=== PATIENT | male | born 1970 | race Caucasian/White ===

== ENCOUNTER 2021-05-27 05:40 | Outpatient (CLI) | payer OTHER ==
[~2021-05-27] VITALS: Ht 182.9 cm; Wt 133.6 kg
[2021-06-17] MEDS ORDERED: LOSA100T57 PO (11:26)
[2021-06-17] MEDS ORDERED: TRAM50TA3 PO (11:26)
[2021-06-17] MEDS ORDERED: AMLO-251 PO (11:26)
== END 2021-06-17 11:29 ==
LOC: PREOP 05:40
PROVIDERS: ATTEND Internal Medicine
DX: Z01.818 Encounter for other preprocedural examination (principal)

== ENCOUNTER 2021-06-25 07:16 | Day surgery (SDC) | payer OTHER ==
--- NOTE | 2021-05-26 14:30 | HISTORY AND PHYSICAL ---
DATE OF SERVICE: COLONOSCOPY HISTORY AND PHYSICAL HISTORY OF PRESENT ILLNESS: The patient is a 50-year-old white male being referred for his first screening colonoscopy by Dr. Ab Whatley. He is likely of average risk, although he is adopted and does not know anything about his family history. Does report some constipation over the past several years, still goes every day, sometimes his stools are hard. He really could not tell me if he actually has to strain that much for stool passage. He has noted no bright red blood per rectum or melena and reports weight has been stable, difficulty keeping his weight down. PAST MEDICAL HISTORY: Significant for hypertension with no other reported medical problems. MEDICATIONS ON ADMISSION: Include amlodipine 10 mg daily, losartan 100 mg daily and tramadol 50 mg p.r.n. pain. 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 He is . No past alcohol or smoking history. PAST SURGICAL HISTORY: Reports no previous surgeries. REVIEW OF SYSTEMS: CONSTITUTIONAL: Denies night sweats, chills, fever, change in weights. PULMONARY: Denies cough, wheezing or shortness of breath. CARDIOVASCULAR: Denies dyspnea on exertion, orthopnea, PND or pedal edema. GASTROINTESTINAL: As noted in the HPI. PHYSICAL EXAMINATION: GENERAL: Reveals pleasant white male, overweight, in no acute distress. VITAL SIGNS: Weight 294 pounds, blood pressure 140/88. HEENT: Unremarkable. Sclerae nonicteric. NECK: Revealed no JVD, adenopathy or bruits. CHEST: Clear to auscultation. CARDIOVASCULAR: Reveals a regular rate and rhythm without murmur, S3 or S4. ABDOMEN: Obese, nontender without evidence for mass or organomegaly. Bowel sounds positive. No bruits appreciated. EXTREMITIES: No cyanosis, clubbing or edema. ASSESSMENT AND PLAN: The patient is being set up for his first screening colonoscopy. He is adopted and does not know anything about family history. Prep instructions with the Suprep kit were given and questions were answered. I thank you for the referral of this pleasant gentleman. Job ID: [id number] DocumentID: [id number] Dictated Date: 05/05/2021 16:06:29 Tax Auditor Date: 05/05/2021 16:36:50 Dictated By: MARY DUMONT MD
[~2021-06-25] VITALS: Ht 182.9 cm; Wt 133.6 kg
[~2021-06-25 07:16] MED LIST: AMLO-251 PO; LOSA100T57 PO; TRAM50TA3 PO
[2021-06-25] MEDS ORDERED: LACTATED RINGERS 1,000 ML IV STA (07:21)
[2021-06-25] MEDS ORDERED: LACTATED RINGERS 1,000 ML IV ONE (07:27)
[2021-06-25] MEDS ORDERED: LIDOCAINE JELLY 2% 6 ML SYRINGE MM PRN (07:30)
[2021-06-25 07:39] VITALS: BP 148/80
[2021-06-25] MEDS ORDERED: PROPOFOL INJECTION 50 ML IV ONE (07:41)
[2021-06-25] MEDS ORDERED: MIDAZOLAM 2 MG/2 ML (VERSED) VIAL ONE (07:41)
--- NOTE | 2021-06-25 07:58 | Pre-Op Note & Conscious Sedat ---
Pre-Operative Progress Note H&P Reviewed The H&P was reviewed, patient examined and no changes noted. Date H&P Reviewed: Jun 25, 2021 Time H&P Reviewed: 07:40 Conscious Sedation Pre-Proced ASA Score 2 For ASA 3 and 4: Consider anesthesia and medical clearance. Also, for patients with a history of failed moderate sedation consider anesthesia. Airway Lungs Heart ASA score ASA 1: a normal healthy patient ASA 2: a patient with a mild systemic disease (mid diabetes, controlled hypertension, obesity ASA 3: a patient with a severe systemic disease that limits activity (angina, COPD, prior Myocardial infarction) ASA 4: a patient with an incapacitating disease that is a constant threat to life (CHF, renal failure) ASA 5: a moribund patient not expected to survive 24 hrs. (ruptured aneurysm) ASA 6: a declared brain- patient whose organs are being harvested. For emergent operations, add the letter E after the classification Mallampati Classification Grade 2 Sedation Plan Analgesia, Amnesia, Plan communicated to team members, Discussed options with patient/fam, Discussed risks with patient/fam The patient is an appropriate candidate to undergo the planned procedure, sedation, and anesthesia. The patient immediately re-assessed prior to indication. MARY DUMONT MD Jun 25, 2021 07:58
[2021-06-25 08:20] VITALS: BP 118/62
[2021-06-25 08:25] VITALS: BP 115/62
[2021-06-25 08:40] VITALS: BP 133/93
[2021-06-25 08:45] VITALS: BP 133/93
--- NOTE | 2021-06-25 11:14 | Anesthesia-General Post-Op ---
MAC Patient Condition Mental Status/LOC: Same as Preop Cardiovascular: Satisfactory Nausea/Vomiting: Absent Respiratory: Satisfactory Pain: Controlled Complications: Absent Post Op Complications Complications None Follow Up Care/Instructions Patient Instructions None needed. Anesthesiology Discharge Order Discharge Order Patient was doing well this morning after the procedure, no complaints, stable vital signs, no apparent adverse anesthesia problems. ERIKA MERRILL DO Jun 25, 2021 11:14
--- NOTE | 2021-06-25 13:21 | OPERATIVE REPORT ---
DATE OF SERVICE: COLONOSCOPY SUMMARY INDICATIONS FOR PROCEDURE: Screening. DESCRIPTION OF PROCEDURE: The patient was placed in the left lateral decubitus position. Prior to undergoing colonoscopy, digital rectal evaluation was performed. Anal sphincter tone was normal and the perianal reflexes intact. Prostate was unremarkable to digital inspection. No abnormalities were noted on digital inspection of the anal canal or distal rectal vault. The colonoscope was then inserted into the rectum and under direct visualization advanced to the cecum. The cecum was identified by identification of the appendiceal orifice and ileocecal valve. Photographic documentation was obtained. Careful inspection was made as colonoscope withdrawn. Quality of prep was fair with no solid stool, but there was some murky liquid and mucus, no blood appreciated. No evidence for internal or external hemorrhoids. The rectum was unremarkable. Several small sigmoid diverticulum were present without evidence for diverticulitis. The descending colon, splenic flexure, transverse colon, hepatic flexure, ascending colon, and cecum were unremarkable. ASSESSMENT: Mild diverticular disease confined to the sigmoid colon was present with an otherwise normal colonoscopy including digital evaluation of the prostate. I would advocate consideration for repeat screening colonoscopy in 10 years as the patient is not aware of any family history for colon cancer. Thank you for the referral of this pleasant gentleman. Job ID: [id number] DocumentID: [id number] Dictated Date: 06/25/2021 08:24:31 Counting Machine Operator Date: 06/25/2021 13:20:58 Dictated By: MARY DUMONT MD [facility]
== END 2021-06-25 09:15 | disposition home or self-care (01) ==
LOC: ENDO 07:16
PROVIDERS: ATTEND Internal Medicine
DX: Z12.11 Encounter for screening for malignant neoplasm of colon (principal); K57.30 Diverticulosis of large intestine without perforation or abscess without bleeding; E66.01 Morbid (severe) obesity due to excess calories; Z68.41 Body mass index [BMI] 40.0-44.9, adult; U07.1 COVID-19